=== PATIENT | male | born 1970 | race Hispanic/Latino ===

== ENCOUNTER 2019-02-09 19:48 | Emergency (ER) | payer OTHER ==
[2019-02-09] MEDS ORDERED: NACL 0.9% 1000 ML 1,000 ML IV ONE (21:03)
[2019-02-09] MEDS ORDERED: ATIVAN IV PRN ×3 (21:03)
[2019-02-09] MEDS ORDERED: VALIUM IV ONE (21:03)
--- NOTE | 2019-02-09 21:04 | Emergency Department Report ---
ED General Adult HPI - General Chief complaint: Chest Pain Stated complaint: palpitations Time Seen by Provider: 02/09/19 20:54 Source: patient, EMS (ems notes not available at time of chart dictation), RN notes reviewed Mode of arrival: Stretcher Limitations: No Limitations - History of Present Illness Initial comments: This is a 48-year-old gentleman. The patient is not known to this provider previously. He reports that he does not have a local primary care doctor. He denies chronic medical conditions that he is aware of. He does reports to daily alcohol consumption. He reports that he is homeless. The patient is brought to the hospital by emergency medical services. The patient has a complaint of heart racing, and chest pounding. This has been going on intermittently for months. It is not painful. It is intermittent. It does not radiate anywhere. It does not have exacerbating or relieving factors that he is aware of. The patient reports no DVT or pulmonary embolus risk factors. He reports that he walks most every day. In the emergency room, the patient denies headache, neck pain, chest pain, abdominal pain, shortness of breath, urinary symptoms, and he denies homicidality, suicidality. He does admit to daily alcohol consumption, and occasionally feels like he gets the shakes. However, he reports that his last alcohol drink was earlier on today. He is not really interested in detox therapy. He also admits to sunburn on his bilateral lower extremities. He reports that his sensation of heart racing today is similar to prior events. -: Gradual Severity scale (0 -10): 2 Consistency: intermittent Improves with: none Worsens with: none - Related Data Previous Rx's Medication Instructions Recorded Last Taken Type Folic Acid [Folvite] 1 mg PO QDAY #30 tablet 02/09/19 Unknown Rx Multivitamin [Multiple Vitamins] 1 each PO QDAY #30 tablet 02/09/19 Unknown Rx chlordiazePOXIDE [Librium] 25 mg PO Q6H PRN #25 capsule 02/09/19 Unknown Rx Allergies Allergy/AdvReac Type Severity Reaction Status Date / Time No Known Allergies Allergy Unverified 02/09/19 20:43 ED Review of Systems ROS: Stated complaint: CP Other details as noted in HPI Constitutional: malaise Eyes: denies: eye discharge ENT: denies: epistaxis Respiratory: denies: shortness of breath Cardiovascular: palpitations. denies: chest pain Gastrointestinal: denies: nausea, vomiting Genitourinary: denies: dysuria Musculoskeletal: arthralgia Skin: rash Neurological: weakness Psychiatric: denies: homicidal thoughts, suicidal thoughts ED Past Medical Hx - Past Medical History Previous Medical History?: Yes Additional medical history: Heart Murmur - Surgical History Past Surgical History?: Yes Additional Surgical History: Right hip replacement - Social History Smoking Status: Current Every Day Smoker Substance Use Type: Alcohol - Medications Home Medications: Home Medications Medication Instructions Recorded Confirmed Last Taken Type Folic Acid [Folvite] 1 mg PO QDAY #30 tablet 02/09/19 Unknown Rx Multivitamin [Multiple Vitamins] 1 each PO QDAY #30 tablet 02/09/19 Unknown Rx chlordiazePOXIDE [Librium] 25 mg PO Q6H PRN #25 capsule 02/09/19 Unknown Rx ED Physical Exam - General Limitations: No Limitations General appearance: alert, anxious - Head Head exam: Present: atraumatic, normocephalic - Eye Eye exam: Present: normal appearance, EOMI - ENT ENT exam: Present: mucous membranes dry, normal external ear exam, other (tongue fasciculations noted) - Neck Neck exam: Present: normal inspection, full ROM. Absent: tenderness, meningismus - Respiratory Respiratory exam: Present: normal lung sounds bilaterally. Absent: respiratory distress, wheezes, rales, rhonchi, stridor, chest wall tenderness, accessory muscle use, decreased breath sounds, prolonged expiratory - Cardiovascular Cardiovascular Exam: Present: normal rhythm, tachycardia, normal heart sounds. Absent: systolic murmur, diastolic murmur, rubs, gallop - GI/Abdominal GI/Abdominal exam: Present: soft. Absent: distended, tenderness, guarding, rebound, rigid, pulsatile mass - Rectal Rectal exam: Present: deferred - Extremities Exam Extremities exam: Present: full ROM (superficial erythema noted on the bilateral lower extremities, nontender, consistent with history of sunburn.), pedal edema, other (2+ pulses noted in the bilateral upper, lower extremities. Compartments soft. No long bony tenderness. The pelvis is stable.). Absent: calf tenderness - Back Exam Back exam: Present: normal inspection, full ROM. Absent: paraspinal tenderness, vertebral tenderness - Neurological Exam Neurological exam: Present: alert, oriented X3, other (Extraocular movements intact. Tongue midline. No facial droop. Facial sensation intact to light touch in the V1, V2, V3 distribution bilaterally. 5 and 5 strength in 4 extremities.. Sensation is intact to light touch in 4 extremities.). Absent: motor sensory deficit - Psychiatric Psychiatric exam: Present: anxious. Absent: homicidal ideation, suicidal ideation - Skin Skin exam: Present: warm, dry, intact, normal color. Absent: rash ED Course Vital Signs 02/09/19 02/09/19 02/09/19 20:31 20:34 20:46 Temperature 98.4 F Pulse Rate 111 H 111 H Respiratory 15 18 18 Rate Blood Pressure 118/77 [Left] O2 Sat by Pulse 99 99 Oximetry - Reevaluation(s) Reevaluation #1: 02/09/19 21:52 Differential diagnosis, including not limited to: Alcohol withdrawal, dehydration, electrolyte derangement, superficial sunburn bilateral lower extremities Assessment and plan: 48-year-old gentleman, no pulmonary embolus or DVT risk factors, low risk by well's criteria, with complaint of palpitations and heart racing, found to be tachycardic, tremulous with tongue fasciculations. I suspect alcohol withdrawal, possible dehydration. The patient is alert and oriented 3, clinically sober at this time, he is not interested in detox, and he does not meet 1013 criteria. We will chip the patient's with IV fluids, and IV benzodiazepines, as per our alcohol withdrawal protocol. Screening laboratory studies will be ordered, and we will assess after his therapy has been initiated. Reevaluation #2: 02/09/19 23:48 Patient resting comfortably, and in no acute distress. Resting heart rate in the 70s. Tremulousness seems to have resolved. Tachycardia has resolved. He appears to be quite comfortable. Nonspecific transaminitis reviewed and appreciated, likely secondary to chronic alcohol consumption. Patient does not meet criteria for inpatient hospitalization. He does not meet criteria for psychiatric hold. The patient will be discharged at this point in time. He will be given outpatient resources. ED Medical Decision Making - Lab Data Result diagrams: 02/09/19 21:04 02/09/19 21:04 Vital Signs 02/09/19 02/09/19 02/09/19 20:31 20:34 20:46 Temperature 98.4 F Pulse Rate 111 H 111 H Respiratory 15 18 18 Rate Blood Pressure 118/77 [Left] O2 Sat by Pulse 99 99 Oximetry Lab Results 02/09/19 02/09/19 02/09/19 Range/Units 21:04 21:04 21:14 WBC 7.4 (4.5-11.0) K/mm3 RBC 4.34 (3.65-5.03) M/mm3 Hgb 15.0 (11.8-15.2) gm/dl Hct 44.0 (35.5-45.6) % MCV 101 H (84-94) fl MCH 35 H (28-32) pg MCHC 34 (32-34) % RDW 14.6 (13.2-15.2) % Plt Count 186 (140-440) K/mm3 Lymph % (Auto) 25.5 (13.4-35.0) % [place] % (Auto) 7.5 H (0.0-7.3) % Eos % (Auto) 1.8 (0.0-4.3) % Baso % (Auto) 1.3 (0.0-1.8) % Lymph # 1.9 (1.2-5.4) K/mm3 [place] # 0.6 (0.0-0.8) K/mm3 Eos # 0.1 (0.0-0.4) K/mm3 Baso # 0.1 (0.0-0.1) K/mm3 Seg Neutrophils % 63.9 (40.0-70.0) % Seg Neutrophils # 4.7 (1.8-7.7) K/mm3 Sodium 137 (137-145) mmol/L Potassium 4.3 (3.6-5.0) mmol/L Chloride 103.3 (98-107) mmol/L Carbon Dioxide 19 L (22-30) mmol/L Anion Gap 19 mmol/L BUN 10 (9-20) mg/dL Creatinine 0.9 (0.8-1.5) mg/dL Estimated GFR > 60 ml/min BUN/Creatinine Ratio 11 % Glucose 87 (75-100) mg/dL Calcium 9.0 (8.4-10.2) mg/dL Magnesium 2.00 (1.7-2.3) mg/dL Total Bilirubin 0.80 (0.1-1.2) mg/dL AST 71 H (5-40) units/L ALT 59 H (7-56) units/L Alkaline Phosphatase 52 (35-129) units/L Total Creatine Kinase 767 H (55-170) units/L Total Protein 7.3 (6.3-8.2) g/dL Albumin 4.0 (3.9-5) g/dL Albumin/Globulin Ratio 1.2 % - EKG Data -: EKG Interpreted by Me EKG shows normal: sinus rhythm Rate: tachycardia - EKG Data When compared to previous EKG there are: previous EKG unavailable 02/09/19 21:53 This is a sinus tachycardia, with a normal axis, QTC 442 ms, a enlargement, high left ventricular voltage, nonspecific T-wave abnormalities in the inferior and lateral leads, the patient is not having chest pain, this is an abnormal EKG, this EKG is not consistent with ST elevation myocardial infarction. - Radiology Data Radiology results: image reviewed interpreted by me: X-ray of the chest is negative for acute disease Critical care attestation.: If time is entered above; I have spent that time in minutes in the direct care of this critically ill patient, excluding procedure time. ED Disposition Clinical Impression: Alcohol dependence Qualifiers: Substance use status: uncomplicated Qualified Code(s): F10.20 - Alcohol dependence, uncomplicated Disposition: DC-01 TO HOME OR SELFCARE Is pt being admited?: No Does the pt Need Aspirin: No Condition: Good Instructions: Alcohol Withdrawal (ED) Additional Instructions: Take the multivitamins and folic acid on a daily basis as directed. Use the Librium medication as directed for sensation of alcohol withdrawal. Follow-up with the primary care doctor within the next month. Follow up with the mental health specialist or [facility] if the patient feels like he would like to participate in alcohol detoxification. Return to the emergency room right away with homicidality, suicidality, projectile vomiting, change of mental status, confusion, inability to tolerate liquid feeds, new, worsening or different symptoms not present on the initial ER evaluation. Referrals: PRIMARY CARE, [Primary Care Provider] - 3-5 Days [facility] [Outside] - 3-5 Days [facility] [Provider Group] - 3-5 Days [facility] [Provider Group] - 3-5 Days
[2019-02-09 21:17] LABS: Basophils # (Auto) 0.1 K/mm3 (0.0-0.1); Basophils % (Auto) 1.3 % (0.0-1.8); Eosinophils # (Auto) 0.1 K/mm3 (0.0-0.4); Eosinophils % (Auto) 1.8 % (0.0-4.3); Lymphocytes # (Auto) 1.9 K/mm3 (1.2-5.4); Lymphocytes % (Auto) 25.5 % (13.4-35.0); Mean Corpuscular HGB Conc 34 % (32-34); Mean Corpuscular Volume 101 fl (84-94); Monocytes # (Auto) 0.6 K/mm3 (0.0-0.8); Monocytes % (Auto) 7.5 % (0.0-7.3); Platelet Count 186 K/mm3 (140-440); Red Blood Count 4.34 M/mm3 (3.65-5.03); Red Cell Distribution Width 14.6 % (13.2-15.2)
[2019-02-09 21:33] LABS: BUN/Creatinine Ratio 11; Blood Urea Nitrogen 10 mg/dL (9-20); Hemolysis Index 20
[2019-02-09 21:48] LABS: Alanine Aminotransferase 59 units/L (7-56)
[2019-02-09 21:55] LABS: Bilirubin,Direct < 0.2 mg/dL (0-0.2)
[2019-02-09] MEDS ORDERED: D5/0.45NS 1,000 ML IV SCH (22:00)
--- NOTE | 2019-02-09 22:11 | XRay Report ---
PROCEDURE: XR CHEST 1V AP HISTORY: Chest Pain FINDINGS: Single frontal view of the chest was acquired. The heart is normal in size. The lungs appea r clear. The pleura and mediastinum are within normal limits. IMPRESSION: No active disease in the chest This document is electronically signed by Charlie Shin MD., February 09 2019 10:09:06 PM ET
[2019-02-09 23:49] VITALS: BP 99/60
== END 2019-02-10 00:05 | disposition home or self-care (01) ==
LOC: ED 19:48
DX: F10.20 Alcohol dependence, uncomplicated (principal); F17.200 Nicotine dependence, unspecified, uncomplicated
CPT/HCPCS: 36415; 71045; 80048; 80076; 82550; 83735; 85025; 93005; 93010; 96374; 99284; G0480; J3360; J7030; 80320

== ENCOUNTER 2019-02-11 07:24 | Emergency (ER) | payer OTHER ==
[2019-02-11] MEDS ORDERED: ATIVAN PO PRN ×2 (07:47)
[2019-02-11] MEDS ORDERED: LIBRIUM PO PRN (07:47)
[2019-02-11] MEDS ORDERED: NACL 0.9% 1000 ML 1,000 ML IV ONE (08:45)
--- NOTE | 2019-02-11 08:46 | Emergency Department Report ---
ED General Adult HPI - General Chief complaint: Medical Clearance Stated complaint: DETOX Time Seen by Provider: 02/11/19 07:46 Source: patient, RN notes reviewed, old records reviewed Mode of arrival: Ambulatory Limitations: No Limitations - History of Present Illness Initial comments: This is a 48-year-old gentleman. I have recently evaluated the patient. The patient has a history of homelessness and alcohol dependence. The patient presents to the emergency room today with complaint of "I'm here for the same thing." The patient was recently discharged, remained in the waiting room for a few hours, spoke to case management after discharge, and was given a list of outpatient resources. The patient denies physical pain at this time. He denies headache, neck pain, chest pain, abdominal pain, shortness of breath. He feels very slightly shaky. He denies homicidality, suicidality. He is asking for food to eat. -: Gradual Consistency: constant Improves with: none Worsens with: none Associated Symptoms: denies other symptoms - Related Data Previous Rx's Medication Instructions Recorded Last Taken Type chlordiazePOXIDE [Librium] 25 mg PO Q6H PRN #25 capsule 02/09/19 Unknown Rx Folic Acid [Folvite] 1 mg PO QDAY #30 tablet 02/11/19 Unknown Rx Multivitamin [Multiple Vitamins] 1 each PO QDAY #30 tablet 02/11/19 Unknown Rx chlordiazePOXIDE [Librium] 50 mg PO Q1HR PRN #15 capsule 02/11/19 Unknown Rx Allergies Allergy/AdvReac Type Severity Reaction Status Date / Time No Known Allergies Allergy Unverified 02/09/19 20:43 ED Review of Systems ROS: Stated complaint: DETOX Other details as noted in HPI Constitutional: malaise. denies: fever Eyes: denies: vision change ENT: denies: epistaxis Respiratory: denies: cough Cardiovascular: denies: chest pain Gastrointestinal: denies: nausea, vomiting Genitourinary: denies: dysuria Musculoskeletal: denies: back pain Skin: denies: lesions Neurological: weakness Psychiatric: other (patient reports that he feels slightly tremulous.). denies: homicidal thoughts, suicidal thoughts ED Past Medical Hx - Past Medical History Previous Medical History?: Yes Hx COPD: Yes Additional medical history: Heart Murmur - Surgical History Past Surgical History?: Yes Additional Surgical History: Right hip replacement - Social History Smoking Status: Current Every Day Smoker Substance Use Type: Alcohol, Methamphetamines - Medications Home Medications: Home Medications Medication Instructions Recorded Confirmed Last Taken Type chlordiazePOXIDE [Librium] 25 mg PO Q6H PRN #25 capsule 02/09/19 Unknown Rx Folic Acid [Folvite] 1 mg PO QDAY #30 tablet 02/11/19 Unknown Rx Multivitamin [Multiple Vitamins] 1 each PO QDAY #30 tablet 02/11/19 Unknown Rx chlordiazePOXIDE [Librium] 50 mg PO Q1HR PRN #15 capsule 02/11/19 Unknown Rx ED Physical Exam - General Limitations: No Limitations General appearance: alert, in no apparent distress - Head Head exam: Present: atraumatic, normocephalic - Eye Eye exam: Present: normal appearance, EOMI. Absent: nystagmus - ENT ENT exam: Present: mucous membranes dry, normal external ear exam, other (scans tone fasciculations noted) - Neck Neck exam: Present: normal inspection, full ROM. Absent: tenderness, meningismus - Respiratory Respiratory exam: Present: normal lung sounds bilaterally. Absent: respiratory distress - Cardiovascular Cardiovascular Exam: Present: regular rate, normal rhythm, normal heart sounds. Absent: bradycardia, tachycardia, irregular rhythm, systolic murmur, diastolic murmur, rubs, gallop - GI/Abdominal GI/Abdominal exam: Present: soft. Absent: distended, tenderness, guarding, rebound, rigid, pulsatile mass - Rectal Rectal exam: Present: deferred - Extremities Exam Extremities exam: Present: normal inspection, full ROM, other (2+ pulses noted in the bilateral upper, lower extremities. Compartments soft. No long bony tenderness. The pelvis is stable.). Absent: pedal edema, joint swelling, calf tenderness - Back Exam Back exam: Present: normal inspection, full ROM. Absent: tenderness, CVA tend erness (R), paraspinal tenderness, vertebral tenderness - Neurological Exam Neurological exam: Present: alert, oriented X3, normal gait, other (Extraocular movements intact. Tongue midline. No facial droop. Facial sensation intact to light touch in the V1, V2, V3 distribution bilaterally. 5 and 5 strength in 4 extremities.. Sensation is intact to light touch in 4 extremities.). Absent: motor sensory deficit - Psychiatric Psychiatric exam: Present: flat affect. Absent: homicidal ideation, suicidal ideation - Skin Skin exam: Present: warm, dry, intact, normal color. Absent: rash ED Course Vital Signs 02/11/19 02/11/19 02/11/19 07:30 07:58 08:00 Temperature 97.8 F Pulse Rate 77 Respiratory 18 Rate Blood Pressure 123/74 109/69 O2 Sat by Pulse 98 100 Oximetry 02/11/19 02/11/19 08:30 09:01 Temperature Pulse Rate 92 H Respiratory 12 Rate Blood Pressure 95/62 109/69 O2 Sat by Pulse 99 100 Oximetry ED Medical Decision Making - Lab Data Result diagrams: 02/11/19 Unknown Vital Signs 02/11/19 02/11/19 02/11/19 07:30 07:58 08:00 Temperature 97.8 F Pulse Rate 77 Respiratory 18 Rate Blood Pressure 123/74 109/69 O2 Sat by Pulse 98 100 Oximetry 02/11/19 02/11/19 08:30 09:01 Temperature Pulse Rate 92 H Respiratory 12 Rate Blood Pressure 95/62 109/69 O2 Sat by Pulse 99 100 Oximetry Lab Results 02/11/19 02/11/19 Range/Units Unknown Unknown Sodium 139 (137-145) mmol/L Potassium 4.8 (3.6-5.0) mmol/L Chloride 102.8 (98-107) mmol/L Carbon Dioxide 27 D (22-30) mmol/L Anion Gap 14 mmol/L BUN 10 (9-20) mg/dL Creatinine 0.6 L (0.8-1.5) mg/dL Estimated GFR > 60 ml/min BUN/Creatinine Ratio 17 % Glucose 92 (75-100) mg/dL Calcium 9.1 (8.4-10.2) mg/dL Magnesium 1.90 (1.7-2.3) mg/dL Plasma/Serum Alcohol < 0.01 (0-0.07) % - Medical Decision Making Differential diagnosis, including but not limited to: Alcohol dependence, homelessness, general medical evaluation Assessment and plan: 48-year-old gentleman with recurrent presentation for homelessness, and alcohol dependence. The patient is afebrile with reassuring vital signs and clinically sober. The patient does not appear to be in any acute distress at this time. The patient walks with a steady gait. No active vomiting at this time. Patient felt improved at supportive symptomatic therapy. The patient does not meet inpatient criteria admission at this time. The patient does not meet criteria for 1013 or psychiatric hospitalizations/hold. The patient will be medically discharged. He was again seen by case management, social work, who provided him with a list of appropriate outpatient resources. I will refill the prescription medications that I recently wrote for him a few days ago. Critical care attestation.: If time is entered above; I have spent that time in minutes in the direct care of this critically ill patient, excluding procedure time. ED Disposition Clinical Impression: Alcohol dependence, Homelessness Disposition: DC-01 TO HOME OR SELFCARE Is pt being admited?: No Does the pt Need Aspirin: No Condition: Good Instructions: Abuse of Alcohol (ED) Additional Instructions: Take the medications as needed/directed. Follow up with outpatient primary care doctor within the next 4-6 weeks. follow up with any of the listed homeless shelters that were provided to the patient. Please return to the emergency room right away with new, worsening or different symptoms. Referrals: [facility] [Provider Group] - 3-5 Days
[2019-02-11] MEDS ORDERED: D5/0.45NS 1,000 ML IV SCH (09:00)
[2019-02-11 09:15] LABS: BUN/Creatinine Ratio 17; Blood Urea Nitrogen 10 mg/dL (9-20); Calcium 9.1 mg/dL (8.4-10.2); Hemolysis Index 12
[2019-02-11 11:04] VITALS: BP 102/66
== END 2019-02-11 11:30 | disposition home or self-care (01) ==
LOC: ED 07:24
DX: F10.20 Alcohol dependence, uncomplicated (principal); Z59.0 Homelessness
CPT/HCPCS: 36415; 80048; 82550; 83735; 99283; G0480; J7030; 80320